=== PATIENT | female | born 1960 ===

== ENCOUNTER 2018-11-03 11:58 | Emergency (ER) | payer MEDICAID, SELFPAY ==
[2018-11-03] VITALS (58 sets, daily range): BP systolic 123–153; BP diastolic 84–92; PULSE 79–103; RESP 14–96; TEMP 36.5; O2SAT 96–99
--- NOTE | 2018-11-03 12:36 | DI.RAD_ITS ---
SYMPTOMS/DIAGNOSIS: CHEST PAIN, LEFT SIDE X 1 WEEK CHEST X-RAY, PA AND LATERAL: No priors. The heart size and pulmonary vasculature are within normal limits. The lungs are clear. The lungs do appear to be hyperinflated with flattened diaphragm suggesting underlying COPD. No infiltrates, effusions or pneumothoraces are identified. Degenerative changes are seen in the spine. IMPRESSION: COPD. No acute pulmonary process.
--- NOTE | 2018-11-03 12:49 | ED.GENADUL_ITS ---
Discharge Plan Disposition Patient Disposition: [facility] Condition: Stable Discharge Details Chief Complaint: Chest Pain Clinical Impression: Atypical chest pain Primary Care Provider: Unknown,Unknown ED Provider: Ezequiel Sharma Home Meds and New Rx's Prescriptions: No Action trazodone 100 mg Tablet 100 mg PO HS RF: 0 Prilosec OTC 20 mg Tablet,Delayed Release (Dr/Ec) 20 mg PO DAILY RF: 0 Cholesterol Medication RF: 0 Discharge Data Discharge Date/Time-TO BE ENTERED AT DEPARTURE: 11/03/18 22:46 Medical Decision Making <FREDO Gallardo - Last Filed: 11/04/18 07:13> Patient is a 58-year-old female presents today with chief complaint of left- sided chest pain that began 1 week ago. She denies any trauma. States the pain is worse with deep inspiration and cough. States she feels shortness of breath but associates this with her discomfort. Does not currently feel short of breath when not moving and when splinting the left side of her chest. Chest wall discomfort was easily reproducible on exam. She denies any personal history of cardiac illness, reports that mother did have multiple myocardial infarctions, first was in the 50s. Patient is an active smoker. Has history of hyperlipidemia and fibromyalgia. EKG reviewed by Dr. Whelan. T wave inversions are noted. No previous EKG to compare to. Patient has low risk for DVT. She denies any personal or familial history of clot. No recent travel, no history of calf pain. No estrogen use. Labs reviewed with no acute abnormality noted. No leukocytosis, no elevation in troponin or d-dimer. XR reviewed by radiologist with no acute findings noted. Discussed findings with [facility] patient. She has had a EKG through PCP historically, I have requested this. Patient given Tylenol and Lidoderm patch. Plan to obtain 3 hour troponin. EKG from PCP, dated 2015, reviewed. Q waves and T wave inversions are new compared to previous. After obtaining this EKG, I consulted with hospitalist regarding admission for continued evaluation. While the patient has a normal troponin at this time, she will need to be continually monitored as she did have EKG changes in the setting of her chest discomfort. She did respond well to oral Tylenol and Lidoderm patch. Patient was given aspirin. However, at this time, hospitalist does not find it appropriate for the patient to stay in this facility as it will be several days before cardiology consult would be able to be facilitated. At the end of my shift, repeat troponin is pending. I discussed admission issues with oncoming nurse practitioner, Son Sharma, will await repeat troponin and disposition the patient. HPI <FREDO Gallardo - Last Filed: 11/04/18 07:13> General Mode of arrival: ambulatory . Date/Time Provider Initiated Documentation: 11/03/18 12:36 . Limitations to Documentation: no limitations . Information obtained by: patient . History of Present Illness 58 year old F presents to the emergency department with the chief complaint of left chest wall pain, described as moderate, with intensity rated at 8. Quality is described as aching, and is localized to the chest. Patient reports radiation to back. Patient started experiencing this week(s) (1) and it has been constant. No relieving factors improve symptom(s), Movement worsens symptoms . Patient notes loss of appetite and shortness of breath (associates with pain); denies cough, fever/chills, headaches and rash. Patient did receive the following treatments prior to arrival, NSAID (last used yesterday ) Related Data Home Medications Medication Instructions Recorded Confirmed Cholesterol Medication 11/03/18 omeprazole magnesium [Prilosec OTC] 20 mg PO DAILY 11/03/18 11/03/18 trazodone 100 mg PO HS 11/03/18 11/03/18 Allergies Allergy/AdvReac Type Severity Reaction Status Date / Time Penicillins Allergy Unverified 11/03/18 12:34 General Stated Complaint: Chest Pain ERNA: 2 Review of Systems <FREDO Gallardo - Last Filed: 11/04/18 07:13> Constitutional Reports as per HPI, Denies chills, Denies fever(s), Denies headache(s), Denies lethargy and Denies poor appetite Eyes Denies change in vision ENT Denies headache(s) Cardiovascular Reports as per HPI, Denies dyspnea and Denies dyspnea on exertion Respiratory Denies dyspnea, Denies dyspnea on exertion and Denies wheezing Gastrointestinal Reports as per HPI, Denies abdominal pain, Denies diarrhea, Denies nausea and Denies vomiting Musculoskeletal Reports as per HPI and Denies back pain Integumentary/Breasts Reports as per HPI and Denies rash Neurologic Denies headache(s) Allergic/Immunologic Denies wheezing PFSH <FREDO Gallardo - Last Filed: 11/04/18 07:13> Social History Smoking/Tobacco Use Status: Current every day Exam <FREDO Gallardo - Last Filed: 11/04/18 07:13> Const General: cooperative, healthy appearing, comfortable, no acute distress and well developed Nutritional Appearance: average body habitus and well nourished Orientation: alert, awake and oriented x3 HENMT Head: normal to inspection Ears: hearing grossly normal bilaterally Mouth: moist mucous membranes Chest Chest: normal inspection of the chest, normal palpation of entire chest wall, no crepitus and localized rib tenderness with anteroposterior compression (left lateral chest wall pain with palpation) Resp Effort & Inspection: normal respiratory effort, able to speak in complete sentences and no respiratory distress Auscultation: clear to auscultation bilaterally, no rales, no rhonchi and no wheezes Cardio Rate: regular rate Rhythm: regular rhythm Heart Sounds: S1 normal and S2 normal GI Inspection: normal to inspection, no edema and non-distended Palpation: soft, no hepatosplenomegaly, not firm, no guarding, not rigid and nontender Auscultation: normal bowel sounds Back/Spine/Pelvis Back: no CVA tenderness Thoracic/Lumbar Spine: thoracic and lumbar spine normal to inspection Skin General skin exam: no rashes or lesions noted Trauma: no lacerations or abrasions Neuro General: alert, awake and oriented x3 Cognition: normal cognition Speech: speech normal Gait: normal gait Extrem General: normal to inspection, normal capillary refill, no pedal edema, no calf tenderness and normal gait Psych Appearance: grossly normal and well kempt Mental Status: mental status grossly normal Speech and Movement: speech and movement normal Course <FREDO Gallardo - Last Filed: 11/04/18 07:13> Vital Signs Temperature 36.5 C 11/03/18 12:20 Pulse 83 11/03/18 12:20 Respiratory Rate 18 11/03/18 12:20 Blood Pressure 141/90 H 11/03/18 12:20 Pulse Oximetry 99 11/03/18 12:20 Temperature 36.5 C 11/03/18 12:20 Temperature Source Skin 11/03/18 12:20 Pulse 83 11/03/18 12:20 Respiratory Rate 18 11/03/18 12:20 Respiratory Effort 11/03/18 12:35 Blood Pressure 141/90 H 11/03/18 12:20 Blood Pressure Position Sitting 11/03/18 12:20 Pulse Oximetry 99 11/03/18 12:20 Oxygen Delivery Method Room Air 11/03/18 12:20 Oxygen Flow Rate 0 11/03/18 12:20 Pain Level 8 11/03/18 12:20 Comment 11/03/18 12:20 Sign Out <FREDO Gallardo - Last Filed: 11/04/18 07:13> Sign Out Data: Sign Out Comment: Care transitioned to Son Sharma NP with repeat troponin pending. Last updated by Laisha Morelos PA at 11/03/18 16:21 Post-Handoff Eval: Patient signed out to me by Laisha YOO for resulting troponin and further treatment or stabilization as needed. Review of second troponin shows no elevation and patient was reassessed and continues to state persistent chest pain. EKG was repeated and also continues to show T wave inversion that was not present on previous EKGs. Given that patient is a smoker, has significant family history of [place] at early age, persistent chest pain, high cholesterol, along with EKG changes, I feel that patient should be admitted for further telemetry observation and stress testing. Due to no availability of cardiology/stress testing at our facility did discuss with patient transfer patient to appropriate closest facility with further testing ability. Attempted to contact both [facility] and [facility] whom stated no availability to accept the patient. I did talk with Dr. Dukes custodial aide and reviewed patient's case and he recommended additional testing to include stress testing on a sooner than later basis. Did discuss possibility of outpatient stress testing that could be performed next week and he recommended that his preference would be for patient to have stress test done tomorrow. Patient requested [facility] transfer to [facility] and that she has been there before. I spoke with Dr. Godinez custodial aide in regards to patient's presentation and complaint. She did state that they were on low capacity for beds but after discussion of patient's case and inability to perform stress testing along with having no cardiology availability she accepted patient pending bed availability. Accepting attending physician is Dr. Vernon Caban. Bed was available and patient was agreeable to transport down to tertiary care center for further workup and testing as warranted. Patient remained stable throughout emergency department stay with no new or worsening symptoms.
--- NOTE | 2018-11-03 12:57 | NUR.NOTE ---
patient placed on continous secured entrance monitor and pulse ox Nursing Note:
--- NOTE | 2018-11-03 13:09 | NUR.NOTE ---
ls shallow respirations and diminshed bilaterally Nursing Note:
[2018-11-03 13:32] LABS: Abs Immature Grans 0.03 k/cumm (0.0-0.09); Absolute Basophil Count 0.06 k/cumm (0.0-0.2); Absolute Eosinophil Count 0.05 k/cumm (0.0-0.7); Absolute Lymphocyte Count 2.94 k/cumm (1.2-3.4); Absolute Monocyte Count 0.58 k/cumm (0.11-0.7); Absolute Neutrophil Count 5.94 k/cumm (1.2-6.7); Basophils % 0.6; Eosinophils % 0.5; HCT 43.1 % (36.0-46.0); HGB 14.7 g/dL (12.0-15.5); Immature Grans % 0.3; Lymphocytes % 30.6; Mean Corp. HGB Concentration 34.1 g/dL (32.0-36.0); Mean Corpuscular Hemoglobin 31.7 pg (27.0-33.0); Mean Corpuscular Volume 93.1 fL (80-95); Mean Platelet Volume 9.1 fL (8.0-11.0); Platelet Count 349 x1000/uL (130-400); RBC 4.63 m/cumm (4.00-5.20); RBC Distribution Width 14.8 % (11.7-14.6)
[2018-11-03 13:42] LABS: ALT 23 U/L (12-78); AST 23 U/L (15-37); Albumin 4.1 g/dL (3.4-5.0); Alkaline Phosphatase 64 U/L (46-116); Anion Gap 12.9 mmol/L (3-11); BUN 9 mg/dL (7-18); Bilirubin, Total 0.5 mg/dL (0.2-1.0); CO2 25.1 mmol/L (21.0-32.0); CREATININE 0.54 mg/dL (0.55-1.02); Chloride 102 mmol/L (98-107); Glucose 83 mg/dL (70-100); Magnesium 2.2 mg/dL (1.8-2.4); Potassium 4.1 mmol/L (3.5-5.1); Sodium 140 mmol/L (136-145); Total Protein 8.1 g/dL (6.4-8.2)
[2018-11-03 13:43] LABS: Troponin I < 0.02 ng/mL (0.00-0.06)
[2018-11-03 13:45] LABS: PTT Activated 24.9 sec (21.0-31.4); Prothrombin Time 9.6 sec (9.3-10.8)
--- NOTE | 2018-11-03 14:02 | NUR.NOTE ---
patient requesting tylenol for chest wall pain Nursing Note:
[2018-11-03 14:11] LABS: D-Dimer 394 ng/mlFEU (<500)
[2018-11-03] MEDS: Acetaminophen 500 MG TAB 1000 MG PO (14:15)
[2018-11-03] MEDS: Lidocaine 5% Patch 1 PATCH TP (14:22)
--- NOTE | 2018-11-03 14:38 | NUR.NOTE ---
P.A . re-examined patient, will continue to monitor Nursing Note:
--- NOTE | 2018-11-03 15:58 | NUR.NOTE ---
patient drinking water 1600 labs draw and sent, patient aware of plan of care Nursing Note:
[2018-11-03] MEDS: Aspirin 81 MG CHEW 324 MG CH (16:04)
--- NOTE | 2018-11-03 16:05 | NUR.NOTE ---
patient refused morphine at this time Nursing Note:
[2018-11-03 16:30] LABS: Troponin I < 0.02 ng/mL (0.00-0.06)
--- NOTE | 2018-11-03 17:35 | NUR.NOTE ---
patient to be admitted to [facility] or [facility] Nursing Note:
--- NOTE | 2018-11-03 17:42 | NUR.NOTE ---
patient food tray ordered, nictoine cessation product given Nursing Note:
--- NOTE | 2018-11-03 18:25 | NUR.NOTE ---
patient urine preg is negative and POC glucose is 97mg/dL Nursing Note:
--- NOTE | 2018-11-03 18:26 | NUR.NOTE ---
LS clear, clear speech Nursing Note:
--- NOTE | 2018-11-03 18:32 | NUR.NOTE ---
patient eating dinner, awaiting dispostion Nursing Note:
--- NOTE | 2018-11-03 19:45 | NUR.NOTE ---
patient awaiting bed acceptance Nursing Note:
[2018-11-03] MEDS: LORazepam 1 MG TAB PO (20:43)
--- NOTE | 2018-11-03 20:44 | NUR.NOTE ---
patient medicated per MD order, patient drinking fluids, using restroom with sob, left rib area 07/01, patient refuses morphine. will comntinue to monitor Nursing Note:
== END 2018-11-03 22:46 | disposition short-term general hospital (02) ==
PROVIDERS: Physician Assistant; Emergency Provider Nurse Practitioner Family
DX: R07.89 Other chest pain (principal); F17.210 Nicotine dependence, cigarettes, uncomplicated
CPT/HCPCS: 36415; 80053; 93005; 96374; 99285; 71046; 83735; 84484; 85025; 85379; 85610; 85730; 93010; 99284